=== PATIENT | male | born 1950 | race Caucasian/White ===

== ENCOUNTER → 2016-08-11 | Outpatient (REF) | payer BC, MEDICARE ==
[2016-08-11 20:02] LABS: ALBUMIN 4.6 GM/DL (3.2-5.2); ALBUMIN/GLOBULIN RATIO 1.39 (1.00-1.93); ALKALINE PHOSPHATASE 117 U/L (45-117); ALT/SGPT 25 U/L (12-78); ANION GAP 9 MEQ/L (8-16); AST/SGOT 10 U/L (15-37); BILIRUBIN,TOTAL 0.6 MG/DL (0.2-1.0); BLOOD UREA NITROGEN 11 MG/DL (7-18); CALCIUM LEVEL 9.4 MG/DL (8.8-10.2); CARBON DIOXIDE LEVEL 29 MEQ/L (21-32); CHLORIDE LEVEL 97 MEQ/L (98-107); CHOLESTEROL LEVEL 155 MG/DL (<200); CREATININE FOR GFR 0.89 MG/DL (0.70-1.30); GLOMERULAR FILTRATION RATE > 60.0 (>49); GLUCOSE, FASTING 234 MG/DL (80-110); SODIUM LEVEL 135 MEQ/L (136-145); TOTAL PROTEIN 7.9 GM/DL (6.4-8.2); TRIGLYCERIDES LEVEL 312 MG/DL (<150)
== END ==
LOC: M SFHCCLAY 09:48
PROVIDERS: ATTEND Family Medicine
DX: I10 Essential (primary) hypertension (principal); E11.9 Type 2 diabetes mellitus without complications; E78.5 Hyperlipidemia, unspecified

== ENCOUNTER 2017-02-09 12:37 | Inpatient (IN) | payer BC, MEDICARE ==
[~2017-02-09] VITALS: Ht 185.4 cm; Wt 107.2 kg
[2017-02-09] MEDS: ATORVASTATIN 20 MG TAB PO SCH (09:00)
[2017-02-09] MEDS ORDERED: HYDR25TA6 (12:57)
[2017-02-09] MEDS ORDERED: ATEN100T PO (12:57)
[2017-02-09] MEDS ORDERED: GABA-279 PO (12:57)
[2017-02-09] MEDS ORDERED: METF10004 PO (12:57)
[2017-02-09] MEDS ORDERED: GLIM2TA PO (12:57)
[2017-02-09] MEDS ORDERED: GEMF600T PO (12:57)
[2017-02-09] MEDS ORDERED: LOVA20TA2 PO (12:57)
[2017-02-09] MEDS ORDERED: LABETALOL HCL 100 MG/20 ML VIAL IV STA ×2 (13:28→14:12)
[2017-02-09 13:36] LABS: BASO # 0.1 10^3/uL (0.0-0.2); BASO % 0.6 % (0.0-1.0); EOS # 0.2 10^3/uL (0.0-0.50); EOS % 2.4 % (0.0-3.0); IMMATURE GRANULOCYTE % 0.5 % (0-0); LYMPH # 2.1 10^3/uL (1.5-4.5); LYMPH % 21.2 % (24.0-44.0); MEAN CORPUSCULAR HEMOGLOBIN 28.3 pg (27.0-33.0); MEAN CORPUSCULAR HGB CONC 34.6 g/dl (32.0-36.5); MEAN CORPUSCULAR VOLUME 81.9 fl (80.0-96.0); MONO # 0.7 10^3/uL (0.0-0.8); MONO % 7.1 % (0.0-5.0); NEUTROPHILS # 6.8 10^3/uL (1.8-7.7); NEUTROPHILS % 68.2 % (36.0-66.0); PLATELET COUNT, AUTOMATED 277 10^3/uL (150-450); RED CELL DISTRIBUTION WIDTH 13.2 % (11.5-14.5)
[2017-02-09 13:41] LABS: ADD MANUAL DIFFER NO; DIFF SLIDE NUMBER 229
[2017-02-09 13:45] LABS: INR 1.01
[2017-02-09 13:51] LABS: ANION GAP 8 MEQ/L (8-16); BLOOD UREA NITROGEN 11 MG/DL (7-18); CALCIUM LEVEL 9.1 MG/DL (8.8-10.2); CARBON DIOXIDE LEVEL 30 MEQ/L (21-32); CHLORIDE LEVEL 93 MEQ/L (98-107); CREATININE FOR GFR 0.92 MG/DL (0.70-1.30); GLOMERULAR FILTRATION RATE > 60.0 (>49); GLUCOSE, FASTING 256 MG/DL (80-110); POTASSIUM SERUM 3.6 MEQ/L (3.5-5.1); SODIUM LEVEL 131 MEQ/L (136-145)
--- NOTE | 2017-02-09 14:00 | REP ---
CT of the brain without IV contrast: There are no comparisons. There is no hemorrhage. Cortical stripe is unremarkable. There is no edema, mass effect or midline shift. The ventricles and sulci are mildly enlarged compatible with diffuse volume loss. The visualized paranasal sinuses and mastoids are clear. Impression: There is no hemorrhage, acute infarct or mass. There is mild diffuse volume loss. Signed by Wilbert Moore MD 02/09/2017 01:51 P
--- NOTE | 2017-02-09 14:03 | REP ---
Portable chest, 01:32 p.m., single AP view, patient sitting: There are no comparisons. The lung josé are clear. The cardiac size is normal. The rg, mediastinum, and bony thorax are unremarkable. Impression: Negative portable chest. Signed by Wilbert Moore MD 02/09/2017 01:54 P
[2017-02-09] MEDS ORDERED: ASPIRIN 325 MG TAB PO ONE (14:15)
[2017-02-09] MEDS ORDERED: ALEV220T26 PO (16:03)
[2017-02-09] MEDS ORDERED: HYDR25TAB PO (16:03)
[2017-02-09] MEDS ORDERED: ASPI1TAB PO (16:03)
[2017-02-09] MEDS ORDERED: OCUVTAB4 PO (16:03)
--- NOTE | 2017-02-09 16:26 | REP ---
MRI BRAIN WITHOUT CONTRAST: HISTORY: Infarction. COMPARISON: CT 02/09/2017 An area of increased signal intensity on diffusion and T2-weighted images is present in the posterior left temporal lobe. This is decreased in signal intensity on ADC images and is consistent with an acute infarction. Small punctate areas of increased signal intensity on diffusion and T2-weighted images are present in the left frontal and parietal lobes. These are isointense in signal intensity on ADC image and are consistent with subacute infarctions. Areas of increased signal intensity on T2-weighted images are present in the periventricular and subcortical white matter. This represents small vessel ischemic disease. There is no intraparenchymal hemorrhage, mass or midline shift. The ventricular system and cortical sulci are dilated consistent with mild volume loss. There is no extracerebral collection. A retention cyst is present in the right maxillary sinus. IMPRESSION: 1. Acute left temporal lobe infarction. There is no hemorrhage. 2. There are punctate subacute infarctions in the left frontal and parietal lobes. 3. Small vessel ischemic disease. 4. Mild volume loss. Signed by Santiago Calero MD 02/09/2017 04:40 P
--- NOTE | 2017-02-09 16:52 | REP ---
MRA BRAIN WITHOUT CONTRAST: HISTORY: Infarction. 3D [id number] MR angiography was performed at the level of the [place]. There is no aneurysm or arteriovenous malformation, Mild atherosclerotic disease involves the cavernous and supraclinoid internal carotid arteries. Major intracranial vessels are patent. The right vertebral artery is dominant. IMPRESSION:1. There is no aneurysm or arteriovenous malformation. 2. Atherosclerotic disease as described above. Signed by Santiago Calero MD 02/09/2017 04:58 P
[2017-02-09] MEDS ORDERED: GLUCOSE 4 GM CHEW TABLET PO PRN (17:15)
[2017-02-09] MEDS ORDERED: DEXTROSE 50% 50 ML SYRINGE IV PRN (17:15)
[2017-02-09] MEDS ORDERED: GLUCAGON FOR INJ 1 MG VIAL (J1610) SC PRN (17:15)
[2017-02-09] MEDS ORDERED: hydrALAZINE INJ 20 MG/ML VIAL IV PRN ×2 (17:45→19:00)
[2017-02-09 17:55] LABS: CHOLESTEROL LEVEL 154 MG/DL (<200); TRIGLYCERIDES LEVEL 420 MG/DL (<150)
[2017-02-09 18:22] VITALS: BP 192/92
[2017-02-09] MEDS: HumaLOG INSULIN (NovoLOG) PER UNIT SC SCH ×2 (18:35→21:00)
[2017-02-09] MEDS ORDERED: CLOPIDOGREL 75 MG TAB PO ONE (18:45)
[2017-02-09] MEDS ORDERED: GABAPENTIN 100 MG CAP PO PRN (19:00)
[2017-02-09 20:00] VITALS: BP 154/72
[2017-02-09] MEDS ORDERED: GEMFIBROZIL 600 MG TAB PO SCH (21:00)
--- NOTE | 2017-02-09 21:42 | HPEPDOC ---
General Date of Admission Feb 09, 2017 at 14:40 Chief Complaint The patient is a 66-year-old male admitted with a reason for visit of Transient Ischemic Attack. History of Present Illness Patient is a 66 year old male who is a poor historian, with a past medical history of Type 2 Diabetes Mellitus (non-insulin dependent), hypertension, and dyslipidemia presented with chief complaint of right sided upper extremity numbness and tingling that began this morning. He states that the numbness and tingling dissipated after a couple hours. He states that at around 10am this morning he had a second episode and that his coworkers at the [facility] department noticed right facial droop and slurring of speech. At the same time he felt numbness and weakness in his right hand. He states this episode lasted about 4 hours. He has been having episodes of right hand numbness/tingling for the past year. Patient denies any leg weakness, changes in vision, headaches, dizziness, lightheadedness, chest pain, shortness of breath, and abdominal pain. Home Medications Scheduled (Preservision Areds) 1 Tab Tab, 1 TAB PO QHS, (Reported) Aspirin (Aspirin 81) 81 Mg Tab, 81 MG PO DAILY, (Reported) Atenolol (Atenolol) 100 Mg Tab, 100 MG PO QHS, (Reported) Atorvastatin Calcium (Atorvastatin Calcium) 20 Mg Tab, 80 MG PO DAILY Clopidogrel Bisulfate (Clopidogrel) 75 Mg Tab, 75 MG PO DAILY Glimepiride (Amaryl) 2 Mg Tab, 2 MG PO DAILY, (Reported) Hydrochlorothiazide (Hydrochlorothiazide) 25 Mg Tab, 25 MG PO DAILY, (Reported) Metformin Hydrochloride (Metformin HCl) 1,000 Mg Tab, 1,000 MG PO BID, (Reported ) Scheduled PRN Gabapentin (Gabapentin) 100 Mg Cap, 100 MG PO for PAIN, (Reported) Allergies Coded Allergies: No Known Drug Allergy (Unverified Allergy, Unknown, NONE, 08/17/12) Past Medical History Medical History 1 [id number] diabetes 2. Hyperlipidemia 3. Low back pain 4. Hypertension Surgical History Denies any surgery history. Family History Significant Family History: No pertinent family hx Unsure because patient is adopted. offsprings are healthy otherwise. Social History * Smoker: Denies Alcohol: Denies Drugs: denies Pets in the home: Dog(s) Review of Symptoms Constitutional: Denies: Fever Eyes: Denies: Pain, Vision change ENT: Denies: Head Aches, Ear Pain, Dysphagia Skin: Denies: Rash, Lesions, Breakdown Pulmonary: Denies: Dyspnea, Cough Cardiovascular: Denies: Chest Pain, Palpitations, Orthopnea, Paroxysmal Noc. Dyspnea, Lt Headedness Gastrointestinal: Denies: Nausea, Vomiting, Abdominal Pain, Diarrhea Genitourinary: Denies: Dysuria, Frequency, Incontinence Hematologic: Denies: Bruising, Bleeding Excessively Musculoskeletal: Denies: Neck Pain, Back Pain, Joint Pain, Muscle Pain, Spasms Neurological: Reports: Numbness (numbness and tingling sensation of the right arm), Change in speech (slurred speech witnessed by his coworkers), Denies: Weakness, Confusion Psych: Reports: Mood Normal, Denies: Depression, Memory Issues Physical Examination General Exam: Positive: Alert, No Acute Distress Eye Exam: Positive: PERRLA, Conjunctiva & lids normal, EOMI, Negative: Sclera icteric ENT Exam: Positive: Atraumatic, Mucous membr. moist/pink, Pharynx Normal Neck Exam: Positive: Supple, Negative: JVD, thyromegaly Chest Exam: Positive: Clear to auscultation, Normal air movement Heart Exam: Positive: Rate Normal, Regular Rhythm, Normal S1, Normal S2, Negative: Murmurs, Rubs Telemetry: Positive: No significant arrhythmia Abdomen Exam: Positive: Normal bowel sounds, Soft, Negative: Tenderness, Hepatospenomegaly Extremity Exam: Positive: Normal pulses, Negative: Clubbing, Cyanosis, Edema Skin Exam: Positive: Nl turgor and temperature, Negative: Breakdown, Lesion Neuro Exam: Positive: Normal Gait, Normal Speech, Cranial Nerves 3-12 NL, Reflexes 2+ Psych Exam: Positive: Mental status NL, Mood NL, Oriented x 3, Other (sad affact.) Vital Signs Vital Signs Date Time Temp Pulse Resp B/P (MAP) Pulse Ox O2 Delivery O2 Flow Rate FiO2 02/09/17 15:55 175/86 (115) 02/09/17 15:44 99 98 02/09/17 12:38 98.2 16 Room Air Laboratory Data Labs 24H Laboratory Tests 2 02/09/17 13:00: Immature Granulocyte % (Auto) 0.5H, White Blood Count 10.0, Red Blood Count 5.19 , Hemoglobin 14.7, Hematocrit 42.5, Mean Corpuscular Volume 81.9, Mean Corpuscular Hemoglobin 28.3, Mean Corpuscular Hemoglobin Concent 34.6, Red Cell Distribution Width 13.2, Platelet Count 277, Neutrophils (%) (Auto) 68.2H, Lymphocytes (%) (Auto) 21.2L, Monocytes (%) (Auto) 7.1H, Eosinophils (%) (Auto) 2.4, Basophils (%) (Auto) 0.6, Neutrophils # (Auto) 6.8, Lymphocytes # (Auto) 2.1, Monocytes # (Auto) 0.7, Eosinophils # (Auto) 0.2, Basophils # (Auto) 0.1, Immature Granulocyte # (Auto) 0.1H, Nucleated Red Blood Cells % (auto) 0.0, Prothrombin Time 13.4, Prothromb Time International Ratio 1.01, Activated Partial Thromboplast Time 34.5, Anion Gap 8, Glomerular Filtration Rate > 60.0, Blood Urea Nitrogen 11, Creatinine 0.92, Sodium Level 131L, Potassium Level 3.6 , Chloride Level 93L, Carbon Dioxide Level 30, Calcium Level 9.1, Total Creatine Kinase 165, Creatine Kinase MB 3.2, Creatine Kinase MB Relative Index 1.93, Troponin I < 0.02 02/09/17 13:30: Bedside Glucose (Misc Panel) 391H CBC/BMP Laboratory Tests 02/09/17 13:00 Red Blood Count 5.19, Mean Corpuscular Volume 81.9, Mean Corpuscular Hemoglobin 28.3, Mean Corpuscular Hemoglobin Concent 34.6, Red Cell Distribution Width 13.2 , Neutrophils (%) (Auto) 68.2 H, Lymphocytes (%) (Auto) 21.2 L, Monocytes (%) ( Auto) 7.1 H, Eosinophils (%) (Auto) 2.4, Basophils (%) (Auto) 0.6, Neutrophils # (Auto) 6.8, Lymphocytes # (Auto) 2.1, Monocytes # (Auto) 0.7, Eosinophils # ( Auto) 0.2, Basophils # (Auto) 0.1, Calcium Level 9.1, Total Creatine Kinase 165 Assessment/Plan 1. Unilateral weakness of the right arm plus slurred speech-has rule out TIA versus ischemic stroke versus hemorrhagic stroke versus pinched nerve. CT of the head in the ER was negative for any intracranial lesions MR of the head showed an acute left temporal infarct and punctate subacute infarctions in the left frontal and parietal lobes. Consulted neurology and Dr. Mensah see the patient tonight. We have switched the patient from lovastatin to atorvastatin 80 mg because the patient 10 year CV risk was 51.5%. Because the patient's MRI of multiple infarcts we have ordered at [facility] which Dr. Ybarra agreed to perform tomorrow on 02/10/2017, and the patient will be nothing by mouth after midnight tonight. Per Dr. Mensah's recommendation we have also placed the patient on 81 mg of aspirin plus Plavix tomorrow. The patient has gotten aspirin 325 mg today and we gave 1 dose of Plavix tonight. We appreciate continued recommendations from Dr. Mensah. Check carotid ultrasound. 2. Hypertension -this is a permissive hypertension on the setting of the patient 's ischemic stroke the patient's high blood pressure needs to be less than 185 systolic. Per the patient stating that he took his home medication this morning of atenolol 100 and hydrochlorothiazide and when he came to the ER the patient had a blood pressure was 196-200s systolic which he was given labetalol 10 mg followed by labetalol 20 mg which did not bring the patient's blood pressure down below 190s systolic. We will continue the patient's atenolol 100 mg plus the hydrochlorothiazide 25 mg and the patient will be placed on IV hydralazine 5 mg Q8h when necessary if blood pressure is above 185 systolic. 3. Diabetes-patient is placed on insulin sliding scale 4. Low back pain-patient can continue home medication. 5. DVT prophylaxis-Brodie's and sequentials Plan / VTE VTE Prophylaxis Ordered?: Yes (TEDs and sequential) GME ATTESTATION GME ATTESTATION My preceptor for this patient encounter was physically present in the building during the encounter and was fully available. As needed, all aspects of the patient interview, examination, medical decision making process, and medical care plan development were reviewed and approved by the preceptor. Preceptor is aware and concurs with the plan as stated in the body of this note and will attest to such by his/her cosignature. ATTENDING NOTE I have seen and examined the above patient and agree with the above documentation. MICHEAL GUARDADO DO Feb 09, 2017 16:28 LEO BAPTISTE Feb 20, 2017 17:33
[2017-02-09 22:00] VITALS: BP 135/68
[2017-02-09] MEDS: ATENOLOL 50 MG TAB PO SCH (22:24)
[2017-02-10] VITALS: BP 139/81
[2017-02-10 04:41] LABS: MEAN CORPUSCULAR HEMOGLOBIN 28.4 pg (27.0-33.0); MEAN CORPUSCULAR VOLUME 81.1 fl (80.0-96.0); RED CELL DISTRIBUTION WIDTH 13.2 % (11.5-14.5)
[2017-02-10 05:20] LABS: ANION GAP 7 MEQ/L (8-16); BLOOD UREA NITROGEN 10 MG/DL (7-18); CALCIUM LEVEL 9.4 MG/DL (8.8-10.2); CARBON DIOXIDE LEVEL 30 MEQ/L (21-32); CHLORIDE LEVEL 96 MEQ/L (98-107); CREATININE FOR GFR 0.81 MG/DL (0.70-1.30); GLOMERULAR FILTRATION RATE > 60.0 (>49); GLUCOSE, FASTING 148 MG/DL (80-110); MAGNESIUM LEVEL 1.7 MG/DL (1.8-2.4); POTASSIUM SERUM 3.9 MEQ/L (3.5-5.1); SODIUM LEVEL 133 MEQ/L (136-145)
[2017-02-10] MEDS: GLIMEPIRIDE 2 MG TAB PO SCH (07:30)
[2017-02-10] MEDS: HumaLOG INSULIN (NovoLOG) PER UNIT SC SCH ×4 (07:30→20:41)
--- NOTE | 2017-02-10 07:44 | REP ---
Bilateral carotid artery duplex ultrasound: Peak flow velocity analysis: RIGHT LEFT ICA. Peak flow velocity cm/sec 83 122 ICA Peak flow velocity cm/sec 16 23 ICA/CCA Ratio 0.701 0.98 ECA Peak flow velocity cm/sec 153 79 CCA Peak flow velocity cm/sec 117 125 There is no mild atheromatous plaque extending from the CCA is into the bulbs and into the ICA is and ECA bilaterally. Internal carotid artery peak flow velocities are normal indicating less than 50% narrowing bilaterally. There is mildly elevated peak flow velocity in the right ECA compatible with a 50 - 69% narrowing. The directional flow of the vertebral arteries is not indicated. Impression: There is no stenosis in the internal carotid arteries on the right or left. There is 50 - 69% stenosis of the right ECA. Signed by Wilbert Moore MD 02/10/2017 07:34 A
[2017-02-10 08:00] VITALS: BP 140/73
--- NOTE | 2017-02-10 08:24 | CR ---
DATE OF CONSULTATION: 02/09/2017 REFERRING PHYSICIAN: Dr. Sary Dawson REASON FOR CONSULTATION: Episodes of slurred speech, right arm numbness, weakness and facial droop on right side. HISTORY OF PRESENT ILLNESS: Miguel Jackson is a 66-year-old man who was at his baseline state of health until last 2 or 3 months when he had 2 or 3 episodes of right-sided facial arm numbness, weakness and slurred speech, which lasted for 15 minutes. Today, starting at 10 a.m., he had four more such episodes. They lasted for 15-30 minutes. He had right-sided facial and arm numbness, weakness and slurred speech. He snores sometimes at night. He denies smoking, snoring arousals, apnea at night. He has history of chronic low back pain. He has been taking aspirin 81 mg daily in past. He denies any headaches or neck pain. He denies dysphagia, diplopia, urinary incontinence, falls or loss of consciousness. His episodes of neurological deficit today occurred around 10 a.m., 11 a.m., 5 p.m. and 7 p.m. He again feels back to his baseline. PAST MEDICAL HISTORY: 1. Dyslipidemia. 2. Hypertension. 3. Hypertriglyceridemia. 4. Diabetes. SOCIAL HISTORY: Denies smoking, alcohol or illicit drugs. FAMILY HISTORY: He is adopted. REVIEW OF SYSTEMS: All systems were reviewed and found to be noncontributory except as mentioned in history present illness. ALLERGIES: NONE. PHYSICAL EXAMINATION: Blood pressure 213/100, pulse 98, temperature 98.2, 100% saturation on room air, respiratory rate 16. Heart: Regular rate and rhythm. Lungs: Clear to auscultation. Abdomen: Soft, nontender, nondistended. Neurological exam: Patient is awake, alert, oriented to place, person and time. Normal speech, comprehension and repetition. Extraocular muscles are intact. No facial weakness. Tongue and uvula are midline. 5/5 strength in all four extremities. Deep tendon flexes are 2+ throughout. Normal sensation. No dysmetria or ataxia. Normal visual josé to confrontation at bedside. No gross musculoskeletal abnormalities. No rash was identified on skin. Ears, nose, throat examination shows crowded upper airway and oropharynx is To class IV. DIAGNOSTIC STUDIES: His MRI scan of brain was reviewed and showed multiple frontal, parietal, occipital and temporal ischemic strokes in left cerebral hemisphere. MRA of brain showed mild atherosclerosis in internal carotid artery. His transesophageal echocardiogram and carotid ultrasound are pending. ASSESSMENT: 1. Multiple left-sided embolic acute and subacute ischemic strokes. 2. There is concern for cardiac source and coagulopathy. 3. Rule out carotid artery stenosis. PLAN: 1. Continue telemetry monitoring. 2. Blood tests to evaluate for coagulopathy. 3. Carotid ultrasound. 4. Transesophageal echocardiogram. 5. Aspirin 881 mg and Plavix 75 mg by mouth daily. 6. Family declined intravenous heparin as he had four episodes of reversible neurological deficit today. If he has another episode, we will start intravenous heparin without bolus. We will aim to keep his capital partial thromboplastin time (PTT) within 40-60. 7. Physical and occupational therapy. 8. Follow with our office in 2-4 weeks after hospital discharge. BERNICE
--- NOTE | 2017-02-10 08:59 | IPNPDOC ---
Subjective Date Seen The patient was seen on 02/10/17. Subjective Chief Complaint/HPI The patient is a 66-year-old male admitted with a reason for visit of Transient Ischemic Attack. Events since last encounter Pt states his symptoms have resolved. He denies any weakness. He denies any slurred speech. Pt denies CP, SOB, Abd pain. Constitutional: Denies: Chills, Fever Pulmonary: Denies: Dyspnea Cardiovascular: Denies: Chest Pain Gastrointestinal: Denies: Abdominal Pain Neurological: Denies: Weakness, Change in speech Objective Physical Examination General Exam: Positive: Alert, No Acute Distress Eye Exam: Positive: PERRLA, Conjunctiva & lids normal, EOMI, Negative: Sclera icteric ENT Exam: Positive: Atraumatic, Mucous membr. moist/pink, Pharynx Normal Neck Exam: Positive: Supple, Negative: JVD, thyromegaly Chest Exam: Positive: Clear to auscultation, Normal air movement Heart Exam: Positive: Rate Normal, Regular Rhythm, Normal S1, Normal S2, Negative: Murmurs, Rubs Telemetry: Positive: No significant arrhythmia Abdomen Exam: Positive: Normal bowel sounds, Soft, Negative: Tenderness, Hepatospenomegaly Extremity Exam: Positive: Normal pulses, Negative: Clubbing, Cyanosis, Edema Skin Exam: Positive: Nl turgor and temperature, Negative: Breakdown, Lesion Neuro Exam: Positive: Normal Gait, Normal Speech, Strength at 5/5 X4 ext, Cranial Nerves 3-12 NL, Reflexes 2+ Psych Exam: Positive: Mental status NL, Mood NL, Oriented x 3 Assessment /Plan Problems (1) Transient ischemic attack Permanent Comment: STROKE on MRI. NOT a TIA Last Edited By: Dm Brown M.D. on Feb 10, 2017 13:43 Status: Acute Problem Specific Plan: Consult Specialist, Monitor Clinically, Repeat Labs Problem Text: 02/10 - Dr Mensah consulted. DANE ordered and is planned for today with Dr Ybarra. Aspirin and Plavix started. Pt was switched from outpt lovastatin to atorvastatin. JFWl: multiple strokes on MRI--not a TIA (2) HTN (hypertension) Status: Chronic Problem Specific Plan: Monitor Clinically, Repeat Labs Problem Text: 02/10 - Pt was given labetalol 10 mg followed by labetalol 20 mg in the ER. Continue the patient's atenolol 100 mg plus the hydrochlorothiazide 25 mg. The patient was placed on IV hydralazine 5 mg Q8h when necessary if blood pressure is above 185 systolic. (3) DM2 (diabetes mellitus, type 2) Status: Chronic Problem Specific Plan: Monitor Clinically, Repeat Labs Problem Text: On SSI (4) Hyperlipemia Status: Chronic Problem Specific Plan: Monitor Clinically Problem Text: 02/10 - Pt was switched from outpt lovastatin to atorvastatin. Plan/VTE VTE Prophylaxis Ordered?: Yes (TEDs and SCDs) VS, I&O, 24H, Fishbone Vital Signs/I&O Vital Signs Date Time Temp Pulse Resp B/P (MAP) Pulse Ox O2 Delivery O2 Flow Rate FiO2 02/10/17 08:00 99.1 91 16 140/73 (95) 98 Room Air I&O- Last 24 Hours up to 6 AM 02/11/17 06:00 Intake Total 0 ml Output Total 375 ml Balance -375 ml Laboratory Data 24H LABS Laboratory Tests 2 02/09/17 13:00: Immature Granulocyte % (Auto) 0.5H, White Blood Count 10.0, Red Blood Count 5.19 , Hemoglobin 14.7, Hematocrit 42.5, Mean Corpuscular Volume 81.9, Mean Corpuscular Hemoglobin 28.3, Mean Corpuscular Hemoglobin Concent 34.6, Red Cell Distribution Width 13.2, Platelet Count 277, Neutrophils (%) (Auto) 68.2H, Lymphocytes (%) (Auto) 21.2L, Monocytes (%) (Auto) 7.1H, Eosinophils (%) (Auto) 2.4, Basophils (%) (Auto) 0.6, Neutrophils # (Auto) 6.8, Lymphocytes # (Auto) 2.1, Monocytes # (Auto) 0.7, Eosinophils # (Auto) 0.2, Basophils # (Auto) 0.1, Immature Granulocyte # (Auto) 0.1H, Nucleated Red Blood Cells % (auto) 0.0, Prothrombin Time 13.4, Prothromb Time International Ratio 1.01, Activated Partial Thromboplast Time 34.5, Anion Gap 8, Glomerular Filtration Rate > 60.0, Estimated Mean Plasma Glucose 151H, Hemoglobin A1c 6.9H, Blood Urea Nitrogen 11 , Creatinine 0.92, Sodium Level 131L, Potassium Level 3.6, Chloride Level 93L, Carbon Dioxide Level 30, Calcium Level 9.1, Total Creatine Kinase 165, Creatine Kinase MB 3.2, Creatine Kinase MB Relative Index 1.93, Troponin I < 0.02, Triglycerides Level 420H, LDL Cholesterol , Total Cholesterol 154, Non-HDL Cholesterol (LDL + VLDL) 125, Total HDL Cholesterol 29L, Cholesterol/HDL Ratio 5.310H 02/09/17 13:30: Bedside Glucose (Misc Panel) 391H 02/09/17 18:32: Bedside Glucose (Misc Panel) 170H 02/09/17 19:12: Total Creatine Kinase 144, Creatine Kinase MB 2.4, Creatine Kinase MB Relative Index 1.66, Troponin I < 0.02 02/09/17 21:58: Bedside Glucose (Misc Panel) 121H 02/10/17 04:29: Anion Gap 7L, Glomerular Filtration Rate > 60.0, Blood Urea Nitrogen 10, Creatinine 0.81, Sodium Level 133L, Potassium Level 3.9, Chloride Level 96L, Carbon Dioxide Level 30, Calcium Level 9.4, Total Creatine Kinase 153, Magnesium Level 1.7L, Creatine Kinase MB 2.1, Creatine Kinase MB Relative Index 1.37, Troponin I < 0.02 CBC/BMP Laboratory Tests 02/09/17 13:00 Red Blood Count 5.19, Mean Corpuscular Volume 81.9, Mean Corpuscular Hemoglobin 28.3, Mean Corpuscular Hemoglobin Concent 34.6, Red Cell Distribution Width 13.2 , Neutrophils (%) (Auto) 68.2 H, Lymphocytes (%) (Auto) 21.2 L, Monocytes (%) ( Auto) 7.1 H, Eosinophils (%) (Auto) 2.4, Basophils (%) (Auto) 0.6, Neutrophils # (Auto) 6.8, Lymphocytes # (Auto) 2.1, Monocytes # (Auto) 0.7, Eosinophils # ( Auto) 0.2, Basophils # (Auto) 0.1, Calcium Level 9.1, Total Creatine Kinase 165 02/10/17 04:29 Red Blood Count 5.29, Mean Corpuscular Volume 81.1, Mean Corpuscular Hemoglobin 28.4, Mean Corpuscular Hemoglobin Concent 35.0, Red Cell Distribution Width 13.2 , Calcium Level 9.4, Total Creatine Kinase 153 Jp Noel RPA-C Feb 10, 2017 08:58 Dm Brown MD Feb 10, 2017 13:44
[2017-02-10] MEDS ORDERED: ASPIRIN 325 MG TAB PO SCH (09:00)
--- NOTE | 2017-02-10 09:17 | ECGEPIP ---
Stationary ECG Study [facility] - ED Test Date: 2017-02-09 Pat Name: TONY VALDIVIA Department: Room: - Gender: M It Manager: bhavin : 1950 Requested By: Enrique Pastor Order Number: [id number] Reading MD: Suzette Persaud Measurements Intervals [place] Rate: 94 P: 48 IA: 168 QRS: 52 QRSD: 97 T: 53 QT: 341 QTc: 428 Interpretive Statements SINUS RHYTHM NSTTW ABNORMALITY NO PRIOR FOR COMPARISON Electronically Signed On 02-10-2017 9:17:19 EDT by Suzette Persaud
[2017-02-10] MEDS: ATORVASTATIN 20 MG TAB PO SCH (09:24)
[2017-02-10] MEDS: hydroCHLOROthiazide 25 MG TAB PO SCH (09:24)
[2017-02-10] MEDS: ASPIRIN 81 MG ENTERIC TAB PO SCH (09:24)
[2017-02-10] MEDS: CLOPIDOGREL 75 MG TAB PO SCH (09:24)
[2017-02-10] MEDS ORDERED: MAG SULF 1GM/100ML (MAG RUN) 1 GM in APPROPRIATE DILUENT 1 EA IV ONE (09:45)
[2017-02-10 12:00] VITALS: BP 161/78
[2017-02-10] MEDS ORDERED: MIDAZOLAM INJ 2 MG/2 ML VIAL (J2250) As Ordered ONE (15:18)
[2017-02-10 17:06] VITALS: BP 136/77
--- NOTE | 2017-02-10 17:35 | T-ECHO ---
DATE OF PROCEDURE: 02/10/2017 REFERRING PHYSICIAN: Dr. Sary Dawson INDICATION: Acute stroke. POSTPROCEDURE DIAGNOSIS: Acute stroke. Mild aortic valve sclerosis. PRINCIPAL FINDINGS: Mild aortic valve sclerosis. No cardiac source of systemic embolism identified. PROCEDURE PERFORMED: Transesophageal echocardiogram with saline contrast IV times four. PROCEDURE PERFORMED BY: Corbin Ybarra MD INCOME TAX INVESTIGATOR: None. CONSCIOUS SEDATION: Midazolam 2 mg IV. COMPLICATIONS: None. DESCRIPTION OF PROCEDURE: Rhythm was sinus. The patient received viscous lidocaine to the back of the pharynx, which he gargled. Following this, he received 2 mg of midazolam IV for light conscious sedation. The patient tolerated the procedure well without any immediate complications. Rhythm was sinus. Esophageal intubation was accomplished without difficulty using a Pankaj multiplane two-dimensional phased array transesophageal echocardiogram probe. The left ventricle appeared normal in size and systolic function and without regional wall motion abnormalities. Left ventricle ejection fraction 60% by visual estimate. Transgastric views were moderately technically difficult. Aortic valve was 3-cusp and displayed mild focal thickening and focal calcific deposits. No aortic stenosis or aortic regurgitation. No vegetations were seen on any of the cardiac valves. Mitral valve was structurally and functionally normal. Very mild mitral regurgitation was present and within physiologic limits. Pulmonic valve was difficult to visualize but appeared to be grossly normal. Tricuspid leaflets were normal. No tricuspid valve regurgitation was seen. Atrial septum was intact anatomically and by color flow Doppler. Saline contrast IV times four with Valsalva maneuver release was performed, and no saline contrast shunting across the atrial septum was seen from left atrium to right atrium with Valsalva maneuver release. Right ventricle appeared normal in size and systolic function. Distal aortic arch and descending thoracic aorta appeared normal. No pericardial effusion. CONCLUSIONS: 1. Mild aortic valve sclerosis of a 3-cusp aortic valve. 2. No abnormal right-left saline contrast shunting times four with Valsalva maneuver release seen across the interatrial septum. No evidence of atrial septal defect or patent foramen ovale. 3. Normal left ventricle size and systolic function. 4. No intracardiac mass, or vegetations, or spontaneous echo contrast, or thrombi. No masses or spontaneous echo contrast was seen within the left atrium. Normal pulmonary vein pulse wave Doppler flow. Copy To: Dr. Sary Ybarra
[2017-02-10 20:00] VITALS: BP 135/74
[2017-02-10] MEDS: ATENOLOL 50 MG TAB PO SCH (20:49)
[2017-02-10 23:45] VITALS: BP 122/68
[2017-02-11] VITALS (7 sets, daily range): BP systolic 133–155; BP diastolic 69–80
[2017-02-11 05:11] LABS: MEAN CORPUSCULAR HEMOGLOBIN 27.9 pg (27.0-33.0); MEAN CORPUSCULAR HGB CONC 34.3 g/dl (32.0-36.5); MEAN CORPUSCULAR VOLUME 81.5 fl (80.0-96.0); RED CELL DISTRIBUTION WIDTH 13.2 % (11.5-14.5); WHITE BLOOD COUNT 9.2 10^3/uL (4.0-10.0)
[2017-02-11 05:39] LABS: ANION GAP 6 MEQ/L (8-16); BLOOD UREA NITROGEN 14 MG/DL (7-18); CALCIUM LEVEL 9.1 MG/DL (8.8-10.2); CARBON DIOXIDE LEVEL 30 MEQ/L (21-32); CHLORIDE LEVEL 96 MEQ/L (98-107); GLOMERULAR FILTRATION RATE > 60.0 (>49); GLUCOSE, FASTING 165 MG/DL (80-110); POTASSIUM SERUM 3.8 MEQ/L (3.5-5.1); SODIUM LEVEL 132 MEQ/L (136-145)
--- NOTE | 2017-02-11 08:08 | IPNPDOC ---
Subjective Date Seen The patient was seen on 02/11/17. Subjective Chief Complaint/HPI The patient is a 66-year-old male admitted with a reason for visit of Transient Ischemic Attack. Events since last encounter Pt denies any new issues. Denies Weakness, slurred speech, CP, SOB, Abd pain. Constitutional: Denies: Chills, Fever Pulmonary: Denies: Dyspnea Cardiovascular: Denies: Chest Pain Gastrointestinal: Denies: Abdominal Pain Objective Physical Examination General Exam: Positive: Alert, No Acute Distress Eye Exam: Positive: PERRLA, Conjunctiva & lids normal, EOMI, Negative: Sclera icteric ENT Exam: Positive: Atraumatic, Mucous membr. moist/pink, Pharynx Normal Neck Exam: Positive: Supple, Negative: JVD, thyromegaly Chest Exam: Positive: Clear to auscultation, Normal air movement Heart Exam: Positive: Rate Normal, Regular Rhythm, Normal S1, Normal S2, Negative: Murmurs, Rubs Telemetry: Positive: No significant arrhythmia Abdomen Exam: Positive: Normal bowel sounds, Soft, Negative: Tenderness, Hepatospenomegaly Extremity Exam: Positive: Normal pulses, Negative: Clubbing, Cyanosis, Edema Skin Exam: Positive: Nl turgor and temperature, Negative: Breakdown, Lesion Neuro Exam: Positive: Normal Gait, Normal Speech, Strength at 5/5 X4 ext, Cranial Nerves 3-12 NL, Reflexes 2+ Psych Exam: Positive: Mental status NL, Mood NL, Oriented x 3 Assessment /Plan Problems (1) Stroke Status: Acute Problem Specific Plan: Consult Specialist, Monitor Clinically Problem Text: 02/11 - MRI Brain: Acute left temporal lobe infarction. There is no hemorrhage. There are punctate subacute infarctions in the left frontal and parietal lobes. Small vessel ischemic disease. Mild volume loss. Carotid U/S: There is no stenosis in the internal carotid arteries on the right or left. There is 50 - 69% stenosis of the right ECA. DANE: Mild aortic valve sclerosis of a 3-cusp aortic valve. No abnormal right- left saline contrast shunting times four with Valsalva maneuver release seen across the interatrial septum. No evidence of atrial septal defect or patent foramen ovale. Normal left ventricle size and systolic function. No intracardiac mass, or vegetations, or spontaneous echo contrast, or thrombi. No masses or spontaneous echo contrast was seen within the left atrium. Normal pulmonary vein pulse wave Doppler flow. Dr Mensah following. He advises continue telemetry monitoring, coagulopathy testing, Aspirin 81 mg and Plavix 75 mg by mouth daily. He noted that the family declined intravenous heparin as he had multiple episodes of reversible neurological deficit today. Dr Mensah states that if he has another episode, we will start intravenous heparin without bolus, and will aim to keep his capital partial thromboplastin time (PTT) within 40-60. Pt getting PT. Not yet safe. (2) HTN (hypertension) Status: Chronic Problem Specific Plan: Monitor Clinically, Repeat Labs Problem Text: 02/11 - On atenolol 100 mg plus the hydrochlorothiazide 25 mg. Has PRN orders for IV hydralazine 5 mg Q8h when necessary if blood pressure is above 185 systolic. 02/10 - Pt was given labetalol 10 mg followed by labetalol 20 mg in the ER. Continue the patient's atenolol 100 mg plus the hydrochlorothiazide 25 mg. The patient was placed on IV hydralazine 5 mg Q8h when necessary if blood pressure is above 185 systolic. (3) DM2 (diabetes mellitus, type 2) Status: Chronic Problem Specific Plan: Monitor Clinically, Repeat Labs Problem Text: On SSI (4) Hyperlipemia Status: Chronic Problem Specific Plan: Monitor Clinically Problem Text: 02/10 - Pt was switched from outpt lovastatin to atorvastatin. (5) Transient ischemic attack Permanent Comment: STROKE on MRI. NOT a TIA Last Edited By: Dm Brown M.D. on Feb 10, 2017 13:43 Status: Acute Problem Specific Plan: Consult Specialist, Monitor Clinically, Repeat Labs Problem Text: 02/10 - Dr Mensah consulted. DANE ordered and is planned for today with Dr Ybarra. Aspirin and Plavix started. Pt was switched from outpt lovastatin to atorvastatin. JFWl: multiple strokes on MRI--not a TIA Plan/VTE VTE Prophylaxis Ordered?: Yes (TEDs and SCDs) VS, I&O, 24H, Fishbone Vital Signs/I&O Vital Signs Date Time Temp Pulse Resp B/P (MAP) Pulse Ox O2 Delivery O2 Flow Rate FiO2 02/11/17 04:13 99.0 84 16 133/74 (93) 96 Room Air 02/10/17 16:09 3 Laboratory Data 24H LABS Laboratory Tests 2 02/10/17 10:47: Total Creatine Kinase 145, Creatine Kinase MB 1.7, Creatine Kinase MB Relative Index 1.17, Troponin I < 0.02 02/10/17 12:04: Bedside Glucose (Misc Panel) 151H 02/10/17 17:09: Bedside Glucose (Misc Panel) 187H 02/10/17 20:40: Bedside Glucose (Misc Panel) 185H 02/11/17 04:42: Anion Gap 6L, Glomerular Filtration Rate > 60.0, Blood Urea Nitrogen 14, Creatinine 0.90, Sodium Level 132L, Potassium Level 3.8, Chloride Level 96L, Carbon Dioxide Level 30, Calcium Level 9.1, Magnesium Level 2.0 CBC/BMP Laboratory Tests 02/11/17 04:42 Red Blood Count 5.30, Mean Corpuscular Volume 81.5, Mean Corpuscular Hemoglobin 27.9, Mean Corpuscular Hemoglobin Concent 34.3, Red Cell Distribution Width 13.2 , Calcium Level 9.1 Jp Neol RPA-C Feb 11, 2017 08:08
[2017-02-11] MEDS: CLOPIDOGREL 75 MG TAB PO SCH (08:22)
[2017-02-11] MEDS: ATORVASTATIN 20 MG TAB PO SCH (08:22)
[2017-02-11] MEDS: HumaLOG INSULIN (NovoLOG) PER UNIT SC SCH ×4 (08:22→20:16)
[2017-02-11] MEDS: hydroCHLOROthiazide 25 MG TAB PO SCH (08:23)
[2017-02-11] MEDS: GLIMEPIRIDE 2 MG TAB PO SCH (08:23)
[2017-02-11] MEDS: ASPIRIN 81 MG ENTERIC TAB PO SCH (08:23)
[2017-02-11] MEDS: ATENOLOL 50 MG TAB PO SCH (20:15)
[2017-02-12] VITALS: BP 132/74
[2017-02-12 04:00] VITALS: BP 156/81
[2017-02-12 05:53] LABS: MEAN CORPUSCULAR HEMOGLOBIN 28.7 pg (27.0-33.0); MEAN CORPUSCULAR VOLUME 79.9 fl (80.0-96.0)
[2017-02-12 06:26] LABS: ANION GAP 9 MEQ/L (8-16); BLOOD UREA NITROGEN 17 MG/DL (7-18); CALCIUM LEVEL 9.2 MG/DL (8.8-10.2); CARBON DIOXIDE LEVEL 29 MEQ/L (21-32); CHLORIDE LEVEL 94 MEQ/L (98-107); CREATININE FOR GFR 0.87 MG/DL (0.70-1.30); GLOMERULAR FILTRATION RATE > 60.0 (>49); GLUCOSE, FASTING 165 MG/DL (80-110); MAGNESIUM LEVEL 1.9 MG/DL (1.8-2.4); POTASSIUM SERUM 3.4 MEQ/L (3.5-5.1); SODIUM LEVEL 132 MEQ/L (136-145)
[2017-02-12 08:00] VITALS: BP 131/78
[2017-02-12] MEDS ORDERED: ATOR1TAB21 PO (08:09)
[2017-02-12] MEDS ORDERED: CLOP75TA2 PO (08:09)
[2017-02-12] MEDS ORDERED: POTASSIUM CHLORIDE 10 MEQ SR TABLET PO ONE (09:00)
[2017-02-12] MEDS ORDERED: INFLUENZA VIRUS VACCINE HIGH DOSE 0.5 ML SYRINGE (90662) IM ONE (09:00)
[2017-02-12] MEDS: HumaLOG INSULIN (NovoLOG) PER UNIT SC SCH (09:01)
[2017-02-12] MEDS: CLOPIDOGREL 75 MG TAB PO SCH (09:02)
[2017-02-12] MEDS: ASPIRIN 81 MG ENTERIC TAB PO SCH (09:02)
[2017-02-12] MEDS: ATORVASTATIN 20 MG TAB PO SCH (09:02)
[2017-02-12] MEDS: GLIMEPIRIDE 2 MG TAB PO SCH (09:02)
[2017-02-12] MEDS: hydroCHLOROthiazide 25 MG TAB PO SCH (09:02)
--- NOTE | 2017-02-12 10:55 | DSES ---
DATE OF ADMISSION: 02/10/2017 DATE OF DISCHARGE: 02/12/2017 PRIMARY CARE PROVIDER (PCP): Luis Kenney MD ATTENDING PHYSICIAN: Dm Brown MD CONSULTANTS: Rosenda Mensah MD Miguel Jackson is a 66-year-old male with a history of diabetes mellitus type 2, hypertension, dyslipidemia, who presented to the emergency room (ER) with right upper extremity numbness and tingling and slurred speech. Imaging was conducted, and a CT of the head showed no hemorrhage, acute infarct, or mass; and an MRI of the brain was ordered and showed acute left temporal lobe infarction with no hemorrhage and punctate subacute infarctions in the left frontal and parietal lobes and small vessel ischemic disease and mild vessel loss. Patient was admitted with stroke. He was seen by neurology by Dr. Mensah. The patient was placed on aspirin and Plavix. He had a transesophageal echocardiogram (DANE) done that showed mild aortic valve sclerosis of three-cusp aortic valve. No [id number] contrast shunting. No evidence of atrioseptal defect or patent foramen ovale. No intracardiac mass or vegetations or thrombi. Patient was seen by physical therapy and has been progressing with therapy. He was taken off of his home dose of lovastatin and gemfibrozil and switched to high-dose atorvastatin 80 mg daily. He will be discharged home today with services if he passes home safety evaluation. Patient will need to followup with neurology per their instructions. Patient should followup with his PCP, Dr. Kenney, next week. PHYSICAL EXAM: Temperature 99.1, pulse 85, respiratory rate 18, blood pressure is 156/81, pulse oximetry 90% on room air. General: Patient is alert and oriented times three. No acute distress. Chest: Clear is to auscultation bilaterally. Heart: Regular rate and rhythm. Abdomen: Positive bowel sounds. Soft, nontender. Extremities: No edema. Neurologic: Speech is normal. Strength is good and equal bilaterally. MEDICATIONS: - atorvastatin 80 mg by mouth daily - Plavix 75 mg by mouth daily - aspirin 81 mg by mouth daily - atenolol 100 mg by mouth daily as needed - Amaryl 2 mg by mouth daily - hydrochlorothiazide 25 mg by mouth daily - metformin 1000 mg by mouth twice a day - PreserVision AREDS one tablet by mouth nightly DISCHARGE INSTRUCTIONS: Patient will followup with Dr. Kenney next week. Patient will followup with Dr. Mensah in a week. Diet is 2-gram sodium and carbohydrate-consistent. Activity as tolerated. Home health referral. DISCHARGE DIAGNOSES: 1. Stroke. 2. Hypertension. 3. Diabetes mellitus type 2. 4. Hyperlipidemia. Edited: preston 02/13/2017 [id number]
[2017-02-17 00:06] LABS: APTT 28.1 sec (.); DRVTT Screen Seconds 42.9 sec (.); PROTEIN S ANTIGEN FREE 103 % (57-157); PROTEIN S ANTIGEN TOTAL 88 % (60-150); SJOGREN'S ANTI SS-A <0.2 AI (0.0-0.9); SJOGREN'S ANTI SS-B <0.2 AI (0.0-0.9)
== END 2017-02-12 11:50 | disposition home or self-care (01) | DRG 45 ==
LOC: M ED 12:37 → M ED INP 14:40 → M ICU 18:13 → OBSVTOIN 02-10 10:02 → M PCU 02-11 21:32
PROVIDERS: ADMIT Hospitalist; ATTEND Family Medicine
DX: I63.49 Cerebral infarction due to embolism of other cerebral artery (principal); I10 Essential (primary) hypertension; E11.9 Type 2 diabetes mellitus without complications; E78.5 Hyperlipidemia, unspecified; Z79.899 Other long term (current) drug therapy; Z79.82 Long term (current) use of aspirin; M54.5 Low back pain; I65.23 Occlusion and stenosis of bilateral carotid arteries

== ENCOUNTER → 2017-07-20 | Outpatient (REF) | payer BC, MEDICARE ==
[2017-07-20 16:39] LABS: HEMATOCRIT 45.5 % (42.0-52.0); HEMOGLOBIN 15.2 g/dl (14.0-18.0); MEAN CORPUSCULAR HEMOGLOBIN 27.6 pg (27.0-33.0); MEAN CORPUSCULAR HGB CONC 33.4 g/dl (32.0-36.5); MEAN CORPUSCULAR VOLUME 82.6 fl (80.0-96.0); PLATELET COUNT, AUTOMATED 260 10^3/uL (150-450); RED BLOOD COUNT 5.51 10^6/uL (4.30-6.10); RED CELL DISTRIBUTION WIDTH 13.2 % (11.5-14.5); WHITE BLOOD COUNT 8.6 10^3/uL (4.0-10.0)
[2017-07-20 16:48] LABS: ANION GAP 5 MEQ/L (8-16); BLOOD UREA NITROGEN 8 MG/DL (7-18); CALCIUM LEVEL 9.1 MG/DL (8.8-10.2); CARBON DIOXIDE LEVEL 32 MEQ/L (21-32); CHLORIDE LEVEL 98 MEQ/L (98-107); CREATININE FOR GFR 0.72 MG/DL (0.70-1.30); GLOMERULAR FILTRATION RATE > 60.0 (>49); GLUCOSE, FASTING 177 MG/DL (70-100); POTASSIUM SERUM 4.2 MEQ/L (3.5-5.1); SODIUM LEVEL 135 MEQ/L (136-145)
[2017-07-20 16:55] LABS: ESTIMATED AVERAGE GLUCOSE 123 MG/DL (60-110); HEMOGLOBIN A1c 5.9 %
== END ==
LOC: M SFHCCLAY 09:30
DX: E11.9 Type 2 diabetes mellitus without complications (principal); I63.9 Cerebral infarction, unspecified
CPT/HCPCS: 83036

== ENCOUNTER → 2017-11-16 | Outpatient (REF) | payer MEDICARE ==
[2017-11-16 12:36] LABS: ALBUMIN 4.1 GM/DL (3.2-5.2); ALBUMIN/GLOBULIN RATIO 1.17 (1.00-1.93); ALKALINE PHOSPHATASE 148 U/L (45-117); ALT/SGPT 36 U/L (12-78); ANION GAP 8 MEQ/L (8-16); AST/SGOT 15 U/L (7-37); BILIRUBIN,TOTAL 0.7 MG/DL (0.2-1.0); BLOOD UREA NITROGEN 11 MG/DL (7-18); CALCIUM LEVEL 9.1 MG/DL (8.8-10.2); CARBON DIOXIDE LEVEL 32 MEQ/L (21-32); CHLORIDE LEVEL 98 MEQ/L (98-107); CHOLESTEROL LEVEL 94 MG/DL (<200); CHOLESTEROL RISK RATIO 3.481 (<5); CREATININE FOR GFR 0.75 MG/DL (0.70-1.30); GLOMERULAR FILTRATION RATE > 60.0 (>49); GLUCOSE, FASTING 86 MG/DL (70-100); HDL CHOLESTEROL 27 MG/DL (>40); LDL CHOLESTEROL 33.4 MG/DL (<100); NON-HDL-C 67 MG/DL; SODIUM LEVEL 138 MEQ/L (136-145); TOTAL PROTEIN 7.6 GM/DL (6.4-8.2); TRIGLYCERIDES LEVEL 168 MG/DL (<150)
[2017-11-16 12:43] LABS: CREATININE, URINE 39.4 MG/DL; MALB URINE SIEMENS < 5.0 MG/L; MAU/CREAT RATIO 12.6 MCG/MG (0.0-30.0)
[2017-11-16 13:49] LABS: ESTIMATED AVERAGE GLUCOSE 114 MG/DL (60-110); HEMOGLOBIN A1c 5.6 %
== END ==
LOC: M SFHCCLAY 09:49
DX: E11.9 Type 2 diabetes mellitus without complications (principal); E78.2 Mixed hyperlipidemia
CPT/HCPCS: 80053

== ENCOUNTER → 2018-03-01 | Outpatient (REF) | payer MEDICARE ==
[2018-03-01 17:10] LABS: ANION GAP 7 MEQ/L (8-16); BLOOD UREA NITROGEN 8 MG/DL (7-18); CALCIUM LEVEL 9.7 MG/DL (8.8-10.2); CARBON DIOXIDE LEVEL 32 MEQ/L (21-32); CHLORIDE LEVEL 99 MEQ/L (98-107); CREATININE FOR GFR 0.75 MG/DL (0.70-1.30); GLOMERULAR FILTRATION RATE > 60.0 (>49); GLUCOSE, FASTING 99 MG/DL (70-100); POTASSIUM SERUM 4.2 MEQ/L (3.5-5.1); SODIUM LEVEL 138 MEQ/L (136-145)
[2018-03-01 19:42] LABS: ESTIMATED AVERAGE GLUCOSE 114 MG/DL (60-110); HEMOGLOBIN A1c 5.6 %
== END ==
LOC: M SFHCCLAY 09:50
DX: E11.9 Type 2 diabetes mellitus without complications (principal); Z23 Encounter for immunization
CPT/HCPCS: 83036

== ENCOUNTER → 2018-06-28 | Outpatient (REF) | payer MEDICARE, BC ==
[~2018-06-28] MED LIST: ALEV220T26 PO; ASPI1TAB PO; ATEN100T PO; ATOR1TAB21 PO; CLOP75TA2 PO; GABA-1171 PO; GEMF600T5 PO; GLIM2TA PO; HYDR25TA6; HYDR25TAB PO; LOVA20TA2 PO; METF10004 PO; OCUVTAB4 PO
[2018-06-28 12:01] LABS: BLOOD UREA NITROGEN 9 MG/DL (7-18); CALCIUM LEVEL 9.2 MG/DL (8.8-10.2); CARBON DIOXIDE LEVEL 31 MEQ/L (21-32); CHLORIDE LEVEL 99 MEQ/L (98-107); CREATININE FOR GFR 0.71 MG/DL (0.70-1.30); GLOMERULAR FILTRATION RATE > 60.0 (>49); GLUCOSE, FASTING 120 MG/DL (70-100); POTASSIUM SERUM 4.2 MEQ/L (3.5-5.1); SODIUM LEVEL 137 MEQ/L (136-145)
[2018-06-28 12:11] LABS: HEMOGLOBIN A1c 6.1 %
== END ==
LOC: M SFHCCLAY 08:49
PROVIDERS: ATTEND Family Medicine
DX: E11.9 Type 2 diabetes mellitus without complications (principal)
CPT/HCPCS: 80048; 83036; G0463

== ENCOUNTER → 2018-11-03 | Outpatient (REF) | payer MEDICARE ==
[~2018-11-03] MED LIST changes: -ASPI1TAB PO; +ASPI81TA26 PO; -GLIM2TA PO; +GLIM2TAB29 PO
[2018-11-03 12:02] LABS: ALBUMIN 4.1 GM/DL (3.2-5.2); ALT/SGPT 37 U/L (12-78); BILIRUBIN,TOTAL 0.7 MG/DL (0.2-1.0); BLOOD UREA NITROGEN 11 MG/DL (7-18); CALCIUM LEVEL 9.4 MG/DL (8.8-10.2); CARBON DIOXIDE LEVEL 30 MEQ/L (21-32); CHLORIDE LEVEL 100 MEQ/L (98-107); CHOLESTEROL LEVEL 105 MG/DL (<200); CREATININE FOR GFR 0.79 MG/DL (0.70-1.30); GLOMERULAR FILTRATION RATE > 60.0 (>49); GLUCOSE, FASTING 124 MG/DL (70-100); HDL CHOLESTEROL 28 MG/DL (>40); LDL CHOLESTEROL 28 MG/DL (<100); NON-HDL-C 77 MG/DL; SODIUM LEVEL 137 MEQ/L (136-145); TRIGLYCERIDES LEVEL 244 MG/DL (<150)
[2018-11-03 12:48] LABS: HEMOGLOBIN A1c 6.1 %
[2018-11-04 12:16] LABS: CREATININE, URINE 33.8 MG/DL; MALB URINE SIEMENS 7.2 MG/L; MAU/CREAT RATIO 21.3 MCG/MG (0.0-30.0)
== END ==
LOC: M SFHCCLAY 08:44
PROVIDERS: ATTEND Family Medicine
DX: I10 Essential (primary) hypertension (principal); E11.9 Type 2 diabetes mellitus without complications; E78.2 Mixed hyperlipidemia
CPT/HCPCS: 36415; 80053; 80061; 82043; 83036; G0463

== ENCOUNTER → 2019-03-07 | Outpatient (REF) | payer MEDICARE ==
[2019-03-07 11:42] LABS: ALBUMIN 4.2 GM/DL (3.2-5.2); ALT/SGPT 38 U/L (12-78); BILIRUBIN,TOTAL 0.7 MG/DL (0.2-1.0); BLOOD UREA NITROGEN 8 MG/DL (7-18); CALCIUM LEVEL 9.5 MG/DL (8.8-10.2); CARBON DIOXIDE LEVEL 31 MEQ/L (21-32); CHLORIDE LEVEL 99 MEQ/L (98-107); CREATININE FOR GFR 0.86 MG/DL (0.70-1.30); GLOMERULAR FILTRATION RATE > 60.0 (>49); GLUCOSE, FASTING 121 MG/DL (70-100); POTASSIUM SERUM 4.2 MEQ/L (3.5-5.1); SODIUM LEVEL 136 MEQ/L (136-145)
[2019-03-07 12:37] LABS: HEMOGLOBIN A1c 5.9 %
== END ==
LOC: M SFHCCLAY 08:46
PROVIDERS: ATTEND Family Medicine
DX: E11.9 Type 2 diabetes mellitus without complications (principal); Z23 Encounter for immunization
CPT/HCPCS: 80053; 83036; 90682; G0008; G0463

== ENCOUNTER → 2019-07-15 | Outpatient (REF) | payer MEDICARE ==
[2019-07-15 11:23] LABS: BLOOD UREA NITROGEN 11 MG/DL (7-18); CALCIUM LEVEL 8.9 MG/DL (8.8-10.2); CARBON DIOXIDE LEVEL 31 MEQ/L (21-32); CHLORIDE LEVEL 101 MEQ/L (98-107); CREATININE FOR GFR 0.75 MG/DL (0.70-1.30); GLOMERULAR FILTRATION RATE > 60.0 (>42); GLUCOSE, FASTING 121 MG/DL (70-100); POTASSIUM SERUM 4.1 MEQ/L (3.5-5.1); SODIUM LEVEL 137 MEQ/L (136-145)
[2019-07-15 11:45] LABS: HEMOGLOBIN A1c 5.8 %
== END ==
LOC: M SFHCCLAY 08:47
PROVIDERS: ATTEND Family Medicine
DX: E11.9 Type 2 diabetes mellitus without complications (principal)
CPT/HCPCS: 36415; 80048; 83036; G0463

== ENCOUNTER → 2019-11-23 | Outpatient (REF) | payer MEDICARE, BC ==
[2019-11-23 12:53] LABS: BASO # 0.1 10^3/uL (0.0-0.2); BASO % 0.7 % (0.0-1.0); EOS # 0.4 10^3/uL (0.0-0.5); EOS % 4.8 % (0.0-3.0); HEMATOCRIT 46.7 % (42.0-52.0); HEMOGLOBIN 15.6 g/dl (13.5-17.5); LYMPH # 1.9 10^3/uL (1.5-5.0); LYMPH % 21.6 % (24.0-44.0); MEAN CORPUSCULAR HEMOGLOBIN 28.6 pg (27.0-33.0); MEAN CORPUSCULAR HGB CONC 33.4 g/dl (32.0-36.5); MEAN CORPUSCULAR VOLUME 85.5 fl (80.0-96.0); MONO # 0.6 10^3/uL (0.0-0.8); MONO % 6.8 % (0.0-5.0); NEUTROPHILS # 5.7 10^3/uL (1.5-8.5); NEUTROPHILS % 65.6 % (36.0-66.0); PLATELET COUNT, AUTOMATED 240 10^3/uL (150-450); RED BLOOD COUNT 5.46 10^6/uL (4.30-6.10); WHITE BLOOD COUNT 8.7 10^3/uL (4.0-10.0)
[2019-11-23 13:09] LABS: ALT/SGPT 32 U/L (12-78); BILIRUBIN,TOTAL 0.7 MG/DL (0.2-1.0); BLOOD UREA NITROGEN 9 MG/DL (7-18); CARBON DIOXIDE LEVEL 30 MEQ/L (21-32); CHLORIDE LEVEL 100 MEQ/L (98-107); CHOLESTEROL LEVEL 102 MG/DL (<200); CHOLESTEROL RISK RATIO 3.923 (<5); CREATININE FOR GFR 0.78 MG/DL (0.70-1.30); FREE T4 1.26 NG/DL (0.76-1.46); GLOMERULAR FILTRATION RATE > 60.0 (>42); GLUCOSE, FASTING 105 MG/DL (70-100); HDL CHOLESTEROL 26 MG/DL (>40); LDL CHOLESTEROL 49 MG/DL (<100); NON-HDL-C 76 MG/DL; POTASSIUM SERUM 3.9 MEQ/L (3.5-5.1); SODIUM LEVEL 137 MEQ/L (136-145); THYROID STIMULATING HORMONE 0.708 uIU/ML (0.358-3.740); TOTAL PROTEIN 7.7 GM/DL (6.4-8.2); TRIGLYCERIDES LEVEL 133 MG/DL (<150)
[2019-11-23 15:21] LABS: HEMOGLOBIN A1c 5.4 %
[2019-11-23 19:12] LABS: CREATININE, URINE 65.2 MG/DL; MALB URINE SIEMENS 7.1 MG/L; MAU/CREAT RATIO 10.8 MCG/MG (0.0-30.0)
== END ==
LOC: M SFHCCLAY 08:48
PROVIDERS: ATTEND Nurse Practitioner Family
DX: E11.9 Type 2 diabetes mellitus without complications (principal); I10 Essential (primary) hypertension; I63.9 Cerebral infarction, unspecified
CPT/HCPCS: 80053; 80061; 82043; 83036; 84439; 84443; 85025; G0463

== ENCOUNTER → 2020-03-26 | Outpatient (REF) | payer MEDICARE, BC ==
[2020-03-26 11:43] LABS: BASO # 0.1 10^3/uL (0.0-0.2); BASO % 0.6 % (0.0-1.0); EOS # 0.3 10^3/uL (0.0-0.5); EOS % 3.3 % (0.0-3.0); HEMOGLOBIN 15.2 g/dl (13.5-17.5); LYMPH # 1.8 10^3/uL (1.5-5.0); LYMPH % 22.3 % (24.0-44.0); MEAN CORPUSCULAR HGB CONC 32.3 g/dl (32.0-36.5); MEAN CORPUSCULAR VOLUME 86.7 fl (80.0-96.0); MONO # 0.7 10^3/uL (0.0-0.8); MONO % 8.7 % (0.0-5.0); NEUTROPHILS # 5.1 10^3/uL (1.5-8.5); NEUTROPHILS % 64.7 % (36.0-66.0); PLATELET COUNT, AUTOMATED 269 10^3/uL (150-450); RED BLOOD COUNT 5.42 10^6/uL (4.30-6.10); WHITE BLOOD COUNT 7.8 10^3/uL (4.0-10.0)
[2020-03-26 12:02] LABS: ALBUMIN 4.2 GM/DL (3.2-5.2); ALT/SGPT 32 U/L (12-78); BILIRUBIN,TOTAL 0.8 MG/DL (0.2-1.0); BLOOD UREA NITROGEN 8 MG/DL (7-18); CALCIUM LEVEL 9.6 MG/DL (8.8-10.2); CARBON DIOXIDE LEVEL 30 MEQ/L (21-32); CHLORIDE LEVEL 100 MEQ/L (98-107); CREATININE FOR GFR 0.86 MG/DL (0.70-1.30); GLOMERULAR FILTRATION RATE > 60.0 (>42); GLUCOSE, FASTING 119 MG/DL (70-100); POTASSIUM SERUM 4.4 MEQ/L (3.5-5.1); SODIUM LEVEL 135 MEQ/L (136-145); TOTAL PROTEIN 7.5 GM/DL (6.4-8.2)
[2020-03-26 12:34] LABS: HEMOGLOBIN A1c 5.4 %
[2020-03-27 21:08] LABS: PSA TOTAL 0.2 ng/mL (0.0-4.0)
== END ==
LOC: M SFHCCLAY 07:36
PROVIDERS: ATTEND Nurse Practitioner Family
DX: I63.9 Cerebral infarction, unspecified (principal); E11.9 Type 2 diabetes mellitus without complications; N52.9 Male erectile dysfunction, unspecified

== ENCOUNTER → 2020-09-20 | Outpatient (REF) | payer MEDICARE, BC ==
[~2020-09-20] MED LIST changes: +HYDR-3490 PO; -HYDR25TAB PO
[2020-09-20 11:52] LABS: BASO # 0.1 10^3/uL (0.0-0.2); BASO % 0.6 % (0.0-1.0); EOS # 0.3 10^3/uL (0.0-0.5); EOS % 4.2 % (0.0-3.0); HEMATOCRIT 47.3 % (42.0-52.0); HEMOGLOBIN 15.5 g/dl (13.5-17.5); LYMPH # 2.1 10^3/uL (1.5-5.0); LYMPH % 26.1 % (24.0-44.0); MEAN CORPUSCULAR HEMOGLOBIN 28.9 pg (27.0-33.0); MEAN CORPUSCULAR HGB CONC 32.8 g/dl (32.0-36.5); MEAN CORPUSCULAR VOLUME 88.1 fl (80.0-96.0); MONO # 0.8 10^3/uL (0.0-0.8); MONO % 9.3 % (2.0-8.0); NEUTROPHILS # 4.8 10^3/uL (1.5-8.5); NEUTROPHILS % 59.3 % (36.0-66.0); PLATELET COUNT, AUTOMATED 258 10^3/uL (150-450); RED BLOOD COUNT 5.37 10^6/uL (4.30-6.10)
[2020-09-20 12:12] LABS: HEMOGLOBIN A1c 5.2 %
[2020-09-20 12:35] LABS: ALBUMIN 4.1 GM/DL (3.2-5.2); ALT/SGPT 33 U/L (12-78); BILIRUBIN,TOTAL 0.8 MG/DL (0.2-1.0); BLOOD UREA NITROGEN 7 MG/DL (7-18); CALCIUM LEVEL 9.7 MG/DL (8.8-10.2); CARBON DIOXIDE LEVEL 30 MEQ/L (21-32); CHLORIDE LEVEL 101 MEQ/L (98-107); CHOLESTEROL LEVEL 111 MG/DL (<200); CREATININE, URINE 62.6 MG/DL; FREE T4 1.12 NG/DL (0.76-1.46); GLOMERULAR FILTRATION RATE > 60.0 (>42); GLUCOSE, FASTING 102 MG/DL (70-100); HDL CHOLESTEROL 31 MG/DL (>40); LDL CHOLESTEROL 48 MG/DL (<100); MALB URINE SIEMENS 5.2 MG/L; MAU/CREAT RATIO 8.3 MCG/MG (0.0-30.0); NON-HDL-C 80 MG/DL; POTASSIUM SERUM 4.3 MEQ/L (3.5-5.1); SODIUM LEVEL 136 MEQ/L (136-145); THYROID STIMULATING HORMONE 0.922 uIU/ML (0.358-3.740); TOTAL PROTEIN 7.5 GM/DL (6.4-8.2); TRIGLYCERIDES LEVEL 160 MG/DL (<150)
== END ==
LOC: M SFHCCLAY 07:20
PROVIDERS: ATTEND Nurse Practitioner Family
DX: E11.9 Type 2 diabetes mellitus without complications (principal); I63.9 Cerebral infarction, unspecified; I10 Essential (primary) hypertension

== ENCOUNTER → 2020-10-29 | Outpatient (CLI) | payer MEDICARE, BC | LOC: M CARPUL 09:22 | PROVIDERS: ATTEND Nurse Practitioner Family | DX: I35.8 Other nonrheumatic aortic valve disorders (principal) ==

== ENCOUNTER → 2021-03-21 | Outpatient (REF) | payer MEDICARE, BC ==
[2021-03-21 12:06] LABS: ALBUMIN 4.2 GM/DL (3.2-5.2); ALT/SGPT 34 U/L (12-78); BLOOD UREA NITROGEN 9 MG/DL (7-18); CALCIUM LEVEL 9.7 MG/DL (8.8-10.2); CARBON DIOXIDE LEVEL 29 MEQ/L (21-32); CHLORIDE LEVEL 99 MEQ/L (98-107); CREATININE FOR GFR 0.82 MG/DL (0.70-1.30); GLOMERULAR FILTRATION RATE > 60.0 (>42); GLUCOSE, FASTING 145 MG/DL (70-100); POTASSIUM SERUM 4.2 MEQ/L (3.5-5.1); SODIUM LEVEL 136 MEQ/L (136-145); TOTAL PROTEIN 7.9 GM/DL (6.4-8.2)
== END ==
LOC: M SFHCCLAY 07:08
PROVIDERS: ATTEND Nurse Practitioner Family
DX: E11.9 Type 2 diabetes mellitus without complications (principal)

== ENCOUNTER → 2021-09-19 | Outpatient (REF) | payer MEDICARE, BC ==
[2021-09-19 11:47] LABS: BASO % 0.4 % (0.0-1.0); EOS # 0.2 10^3/uL (0.0-0.5); EOS % 2.6 % (0.0-3.0); HEMOGLOBIN 14.9 g/dl (13.5-17.5); LYMPH # 1.1 10^3/uL (1.5-5.0); LYMPH % 15.5 % (24.0-44.0); MEAN CORPUSCULAR HEMOGLOBIN 29.1 pg (27.0-33.0); MEAN CORPUSCULAR HGB CONC 34.7 g/dl (32.0-36.5); MONO % 14.4 % (2.0-8.0); NEUTROPHILS # 4.6 10^3/uL (1.5-8.5); NEUTROPHILS % 66.8 % (36.0-66.0); PLATELET COUNT, AUTOMATED 188 10^3/uL (150-450); RED BLOOD COUNT 5.12 10^6/uL (4.30-6.10); WHITE BLOOD COUNT 6.9 10^3/uL (4.0-10.0)
[2021-09-19 12:11] LABS: ALBUMIN 3.9 GM/DL (3.2-5.2); ALT/SGPT 28 U/L (12-78); BLOOD UREA NITROGEN 7 MG/DL (7-18); CALCIUM LEVEL 9.5 MG/DL (8.8-10.2); CARBON DIOXIDE LEVEL 29 MEQ/L (21-32); CHLORIDE LEVEL 96 MEQ/L (98-107); CHOLESTEROL LEVEL 103 MG/DL (<200); CHOLESTEROL RISK RATIO 3.551 (<5); CREATININE FOR GFR 0.79 MG/DL (0.70-1.30); GLOMERULAR FILTRATION RATE > 60.0 (>42); GLUCOSE, FASTING 153 MG/DL (70-100); HDL CHOLESTEROL 29 MG/DL (>40); LDL CHOLESTEROL 45 MG/DL (<100); NON-HDL-C 74 MG/DL; POTASSIUM SERUM 3.9 MEQ/L (3.5-5.1); SODIUM LEVEL 133 MEQ/L (136-145); TOTAL PROTEIN 7.6 GM/DL (6.4-8.2); TRIGLYCERIDES LEVEL 143 MG/DL (<150)
[2021-09-19 21:55] LABS: HEMOGLOBIN A1c 6.3 %
== END ==
LOC: M SFHCCLAY 07:09
PROVIDERS: ATTEND Nurse Practitioner Family
DX: E11.9 Type 2 diabetes mellitus without complications (principal); I10 Essential (primary) hypertension; I63.9 Cerebral infarction, unspecified

== ENCOUNTER → 2022-03-20 | Outpatient (REF) | payer MEDICARE, BC ==
[2022-03-20 11:53] LABS: BASO # 0.1 10^3/uL (0.0-0.2); BASO % 0.7 % (0.0-1.0); EOS # 0.3 10^3/uL (0.0-0.5); HEMATOCRIT 45.2 % (42.0-52.0); HEMOGLOBIN 15.1 g/dl (13.5-17.5); LYMPH # 2.4 10^3/uL (1.5-5.0); LYMPH % 28.3 % (24.0-44.0); MEAN CORPUSCULAR HEMOGLOBIN 28.9 pg (27.0-33.0); MEAN CORPUSCULAR HGB CONC 33.4 g/dl (32.0-36.5); MEAN CORPUSCULAR VOLUME 86.6 fl (80.0-96.0); MONO # 0.7 10^3/uL (0.0-0.8); NEUTROPHILS % 59.6 % (36.0-66.0); PLATELET COUNT, AUTOMATED 270 10^3/uL (150-450); RED BLOOD COUNT 5.22 10^6/uL (4.30-6.10); WHITE BLOOD COUNT 8.3 10^3/uL (4.0-10.0)
[2022-03-20 12:41] LABS: ALT/SGPT 29 U/L (12-78); BLOOD UREA NITROGEN 9 MG/DL (7-18); CALCIUM LEVEL 9.4 MG/DL (8.8-10.2); CARBON DIOXIDE LEVEL 29 MEQ/L (21-32); CHLORIDE LEVEL 97 MEQ/L (98-107); CHOLESTEROL LEVEL 111 MG/DL (<200); CHOLESTEROL RISK RATIO 3.964 (<5); CREATININE FOR GFR 0.76 MG/DL (0.70-1.30); GLOMERULAR FILTRATION RATE > 60.0 (>42); GLUCOSE, FASTING 154 MG/DL (70-100); HDL CHOLESTEROL 28 MG/DL (>40); LDL CHOLESTEROL 32 MG/DL (<100); NON-HDL-C 83 MG/DL; POTASSIUM SERUM 4.3 MEQ/L (3.5-5.1); SODIUM LEVEL 135 MEQ/L (136-145); TOTAL PROTEIN 7.6 GM/DL (6.4-8.2); TRIGLYCERIDES LEVEL 257 MG/DL (<150)
[2022-03-20 13:24] LABS: HEMOGLOBIN A1c 6.1 %
== END ==
LOC: M SFHCCLAY 07:03
PROVIDERS: ATTEND Nurse Practitioner Family
DX: E78.2 Mixed hyperlipidemia (principal); I10 Essential (primary) hypertension; E11.9 Type 2 diabetes mellitus without complications; I63.9 Cerebral infarction, unspecified; I35.8 Other nonrheumatic aortic valve disorders

== ENCOUNTER → 2022-09-17 | Outpatient (REF) | payer MEDICARE, BC ==
[2022-09-17 12:03] LABS: ALBUMIN 4.3 G/DL (3.2-5.2); ALKALINE PHOSPHATASE 151 U/L (46-116); ALT/SGPT 31 U/L (7.0-40); AST/SGOT 17 U/L (<34); BILIRUBIN,TOTAL 0.9 MG/DL (0.3-1.2); BLOOD UREA NITROGEN 7 MG/DL (9-23); CALCIUM LEVEL 9.5 MG/DL (8.3-10.6); CARBON DIOXIDE LEVEL 31 MMOL/L (20-31); CHLORIDE LEVEL 98 MMOL/L (98-107); CHOLESTEROL LEVEL 118 MG/DL (<200); CREATININE FOR GFR 0.68 MG/DL (0.70-1.30); GLOMERULAR FILTRATION RATE > 60.0 (>42); GLUCOSE, FASTING 165 MG/DL (74-106); HDL CHOLESTEROL 27.4 MG/DL (>40); NON-HDL-C 90.6 MG/DL; POTASSIUM SERUM 4.5 MMOL/L (3.5-5.1); SODIUM LEVEL 131 MMOL/L (136-145); TOTAL PROTEIN 7.4 G/DL (5.7-8.2); TRIGLYCERIDES LEVEL 268 MG/DL (<150)
[2022-09-17 12:05] LABS: FREE T4 1.34 NG/DL (0.89-1.76); THYROID STIMULATING HORMONE 0.788 uIU/ML (0.55-4.78)
[2022-09-17 12:17] LABS: BASO # 0.1 10^3/uL (0.0-0.2); BASO % 0.6 % (0.0-1.0); EOS # 0.4 10^3/uL (0.0-0.5); EOS % 4.2 % (0.0-3.0); HEMATOCRIT 43.9 % (42.0-52.0); HEMOGLOBIN 15.2 g/dl (13.5-17.5); LYMPH % 23.6 % (24.0-44.0); MEAN CORPUSCULAR HGB CONC 34.6 g/dl (32.0-36.5); MEAN CORPUSCULAR VOLUME 86.8 fl (80.0-96.0); MONO # 0.7 10^3/uL (0.0-0.8); MONO % 8.3 % (2.0-8.0); NEUTROPHILS # 5.4 10^3/uL (1.5-8.5); NEUTROPHILS % 62.7 % (36.0-66.0); PLATELET COUNT, AUTOMATED 268 10^3/uL (150-450); RED BLOOD COUNT 5.06 10^6/uL (4.30-6.10); WHITE BLOOD COUNT 8.6 10^3/uL (4.0-10.0)
== END ==
LOC: M SFHCCLAY 07:17
PROVIDERS: ATTEND Nurse Practitioner Family
DX: I63.9 Cerebral infarction, unspecified (principal); E11.9 Type 2 diabetes mellitus without complications; I10 Essential (primary) hypertension; E78.2 Mixed hyperlipidemia; I35.8 Other nonrheumatic aortic valve disorders

== ENCOUNTER → 2022-12-08 | Outpatient (REF) | payer MEDICARE, BC ==
[2022-12-08 12:47] LABS: HEMOGLOBIN A1c 6.5 % (4.0-6.0)
[2022-12-08 12:58] LABS: ALBUMIN 4.2 G/DL (3.2-5.2); ALKALINE PHOSPHATASE 144 U/L (46-116); ALT/SGPT 23 U/L (7.0-40); AST/SGOT < 8 U/L (<34); BILIRUBIN,TOTAL 0.9 MG/DL (0.3-1.2); BLOOD UREA NITROGEN 11 MG/DL (9-23); CALCIUM LEVEL 9.4 MG/DL (8.3-10.6); CARBON DIOXIDE LEVEL 30 MMOL/L (20-31); CHLORIDE LEVEL 102 MMOL/L (98-107); CREATININE FOR GFR 0.73 MG/DL (0.70-1.30); GLOMERULAR FILTRATION RATE > 60.0 (>42); GLUCOSE, FASTING 127 MG/DL (74-106); POTASSIUM SERUM 4.3 MMOL/L (3.5-5.1); SODIUM LEVEL 138 MMOL/L (136-145); TOTAL PROTEIN 7.3 G/DL (5.7-8.2)
== END ==
LOC: M SFHCCLAY 07:05
PROVIDERS: ATTEND Nurse Practitioner Family
DX: E11.9 Type 2 diabetes mellitus without complications (principal); I63.9 Cerebral infarction, unspecified; I10 Essential (primary) hypertension; E78.2 Mixed hyperlipidemia; I35.8 Other nonrheumatic aortic valve disorders

== ENCOUNTER → 2023-03-18 | Outpatient (REF) | payer MEDICARE, BC ==
[2023-03-18 13:19] LABS: HEMOGLOBIN A1c 6.4 % (4.0-6.0)
[2023-03-18 13:36] LABS: ALBUMIN 4.2 G/DL (3.2-5.2); ALKALINE PHOSPHATASE 158 U/L (46-116); ALT/SGPT 27 U/L (7.0-40); AST/SGOT 13 U/L (<34); BILIRUBIN,TOTAL 1.1 MG/DL (0.3-1.2); BLOOD UREA NITROGEN 11 MG/DL (9-23); CALCIUM LEVEL 9.3 MG/DL (8.3-10.6); CARBON DIOXIDE LEVEL 31 MMOL/L (20-31); CHLORIDE LEVEL 103 MMOL/L (98-107); CREATININE FOR GFR 0.76 MG/DL (0.70-1.30); GLOMERULAR FILTRATION RATE > 60.0 (>42); GLUCOSE, FASTING 140 MG/DL (74-106); POTASSIUM SERUM 4.6 MMOL/L (3.5-5.1); SODIUM LEVEL 140 MMOL/L (136-145); TOTAL PROTEIN 5.7 G/DL (5.7-8.2)
== END ==
LOC: M SFHCCLAY 07:04
PROVIDERS: ATTEND Nurse Practitioner Family
DX: E11.9 Type 2 diabetes mellitus without complications (principal)

== ENCOUNTER → 2023-09-21 | Outpatient (REF) | payer MEDICARE, BC ==
[2023-09-21 13:01] LABS: BASO # 0.1 10^3/uL (0.0-0.2); BASO % 0.7 % (0.0-1.0); EOS # 0.3 10^3/uL (0.0-0.5); EOS % 3.7 % (0.0-3.0); HEMATOCRIT 50.1 % (42.0-52.0); HEMOGLOBIN 16.7 g/dl (13.5-17.5); LYMPH # 2.1 10^3/uL (1.5-5.0); LYMPH % 24.6 % (24.0-44.0); MEAN CORPUSCULAR HGB CONC 33.3 g/dl (32.0-36.5); MEAN CORPUSCULAR VOLUME 87.1 fl (80.0-96.0); MONO # 0.8 10^3/uL (0.0-0.8); MONO % 8.9 % (2.0-8.0); NEUTROPHILS # 5.4 10^3/uL (1.5-8.5); NEUTROPHILS % 61.8 % (36.0-66.0); PLATELET COUNT, AUTOMATED 245 10^3/uL (150-450); RED BLOOD COUNT 5.75 10^6/uL (4.30-6.10); WHITE BLOOD COUNT 8.7 10^3/uL (4.0-10.0)
[2023-09-21 13:19] LABS: HEMOGLOBIN A1c 6.3 % (4.0-6.0)
[2023-09-21 13:35] LABS: CREATININE, URINE 47.3 MG/DL; MALB URINE SIEMENS < 3.0 MG/L; MAU/CREAT RATIO 6.3 MCG/MG (0.0-30.0)
[2023-09-21 13:37] LABS: ALKALINE PHOSPHATASE 144 U/L (46-116); ALT/SGPT 23 U/L (7.0-40); AST/SGOT 12 U/L (<34); BILIRUBIN,TOTAL 0.8 MG/DL (0.3-1.2); BLOOD UREA NITROGEN 14 MG/DL (9-23); CALCIUM LEVEL 9.8 MG/DL (8.3-10.6); CARBON DIOXIDE LEVEL 30 MMOL/L (20-31); CHLORIDE LEVEL 102 MMOL/L (98-107); CHOLESTEROL LEVEL 107 MG/DL (<200); CHOLESTEROL RISK RATIO 4.06 (<5); CREATININE FOR GFR 0.75 MG/DL (0.70-1.30); GLOMERULAR FILTRATION RATE > 60.0 (>42); GLUCOSE, FASTING 135 MG/DL (74-106); HDL CHOLESTEROL 26.3 MG/DL (>40); LDL CHOLESTEROL 44.1 MG/DL (<100); NON-HDL-C 80.7 MG/DL; POTASSIUM SERUM 4.8 MMOL/L (3.5-5.1); SODIUM LEVEL 137 MMOL/L (136-145); TOTAL PROTEIN 7.1 G/DL (5.7-8.2); TRIGLYCERIDES LEVEL 183 MG/DL (<150)
[2023-09-21 13:41] LABS: FREE T4 1.33 NG/DL (0.89-1.76)
== END ==
LOC: M SFHCCLAY 06:55
PROVIDERS: ATTEND Nurse Practitioner Family
DX: E11.9 Type 2 diabetes mellitus without complications (principal); I63.9 Cerebral infarction, unspecified; I10 Essential (primary) hypertension; E78.2 Mixed hyperlipidemia; I35.8 Other nonrheumatic aortic valve disorders

== ENCOUNTER → 2023-10-07 | Outpatient (CLI) | payer MEDICARE, BC | LOC: M PLAIMG 14:39 | PROVIDERS: ATTEND Nurse Practitioner Family | DX: I35.8 Other nonrheumatic aortic valve disorders (principal) ==

== ENCOUNTER → 2024-03-22 | Outpatient (REF) | payer MEDICARE ==
[2024-03-22 11:36] LABS: ALBUMIN 3.9 G/DL (3.2-5.2); ALKALINE PHOSPHATASE 150 U/L (40-129); ALT/SGPT 19 U/L (7.0-40); AST/SGOT < 8 U/L (<34); BLOOD UREA NITROGEN 13 MG/DL (9-23); CALCIUM LEVEL 9.8 MG/DL (8.3-10.6); CARBON DIOXIDE LEVEL 30 MMOL/L (20-31); CHLORIDE LEVEL 104 MMOL/L (98-107); CREATININE FOR GFR 0.68 MG/DL (0.70-1.30); GLOMERULAR FILTRATION RATE > 60.0 (>42); GLUCOSE, FASTING 126 MG/DL (74-106); POTASSIUM SERUM 4.4 MMOL/L (3.5-5.1); SODIUM LEVEL 139 MMOL/L (136-145); TOTAL PROTEIN 7.7 G/DL (5.7-8.2)
[2024-03-22 11:46] LABS: HEMOGLOBIN A1c 5.9 % (4.0-6.0)
== END ==
LOC: M SFHCCLAY 07:06
PROVIDERS: ATTEND Nurse Practitioner Family
DX: E11.9 Type 2 diabetes mellitus without complications (principal)

== ENCOUNTER → 2024-09-19 | Outpatient (REF) | payer MEDICARE, BC ==
[2024-09-19 12:30] LABS: BASO # 0.1 10^3/uL (0.0-0.2); EOS # 0.3 10^3/uL (0.0-0.5); EOS % 4.7 % (0.0-3.0); HEMATOCRIT 49.3 % (42.0-52.0); HEMOGLOBIN 16.1 g/dl (13.5-17.5); LYMPH # 1.9 10^3/uL (1.5-5.0); LYMPH % 27.4 % (24.0-44.0); MEAN CORPUSCULAR HEMOGLOBIN 29.2 pg (27.0-33.0); MEAN CORPUSCULAR HGB CONC 32.7 g/dl (32.0-36.5); MEAN CORPUSCULAR VOLUME 89.5 fl (80.0-96.0); MONO # 0.6 10^3/uL (0.0-0.8); MONO % 8.8 % (2.0-8.0); NEUTROPHILS # 4.1 10^3/uL (1.5-8.5); NEUTROPHILS % 57.7 % (36.0-66.0); PLATELET COUNT, AUTOMATED 256 10^3/uL (150-450); RED BLOOD COUNT 5.51 10^6/uL (4.30-6.10); WHITE BLOOD COUNT 7.1 10^3/uL (4.0-10.0)
[2024-09-19 12:59] LABS: CREATININE, URINE 42.4 MG/DL; MALB URINE SIEMENS < 3.0 MG/L
[2024-09-19 13:11] LABS: HEMOGLOBIN A1c 5.9 % (4.0-6.0)
[2024-09-19 13:17] LABS: FREE T4 1.34 NG/DL (0.89-1.76); THYROID STIMULATING HORMONE 0.922 uIU/ML (0.55-4.78)
[2024-09-19 13:24] LABS: ALBUMIN 4.1 G/DL (3.2-5.2); ALKALINE PHOSPHATASE 163 U/L (40-129); ALT/SGPT 20 U/L (7.0-40); AST/SGOT 10 U/L (<34); BILIRUBIN,TOTAL 0.8 MG/DL (0.3-1.2); BLOOD UREA NITROGEN 10 MG/DL (9-23); CALCIUM LEVEL 9.4 MG/DL (8.3-10.6); CARBON DIOXIDE LEVEL 30 MMOL/L (20-31); CHLORIDE LEVEL 103 MMOL/L (98-107); CHOLESTEROL LEVEL 111 MG/DL (<200); CHOLESTEROL RISK RATIO 3.82 (<5); GLOMERULAR FILTRATION RATE > 90.0 (>42); GLUCOSE, FASTING 122 MG/DL (74-106); LDL CHOLESTEROL 38.4 MG/DL (<100); POTASSIUM SERUM 4.7 MMOL/L (3.5-5.1); SODIUM LEVEL 142 MMOL/L (136-145); TOTAL PROTEIN 7.2 G/DL (5.7-8.2); TRIGLYCERIDES LEVEL 218 MG/DL (<150)
[2024-09-21 12:32] LABS: PSA FREE 0.1 ng/mL; PSA TOTAL 0.4 ng/mL (< OR = 4.0)
== END ==
LOC: M SFHCCLAY 06:59
PROVIDERS: ATTEND Nurse Practitioner Family
DX: E11.9 Type 2 diabetes mellitus without complications (principal); I63.9 Cerebral infarction, unspecified; I10 Essential (primary) hypertension; N52.9 Male erectile dysfunction, unspecified; E78.2 Mixed hyperlipidemia; I35.8 Other nonrheumatic aortic valve disorders

== ENCOUNTER → 2025-01-12 | Outpatient (CLI) | payer MEDICARE, BC | LOC: M CLY 09:25 | PROVIDERS: ATTEND Nurse Practitioner Family | DX: M25.551 Pain in right hip (principal); M16.11 Unilateral primary osteoarthritis, right hip ==

== ENCOUNTER → 2025-03-22 | Outpatient (REF) | payer MEDICARE, BC ==
[2025-03-22 12:33] LABS: BASO # 0.1 10^3/uL (0.0-0.2); BASO % 0.7 % (0.0-1.0); EOS # 0.2 10^3/uL (0.0-0.5); EOS % 2.7 % (0.0-3.0); LYMPH # 2.1 10^3/uL (1.5-5.0); LYMPH % 24.4 % (24.0-44.0); MONO # 0.7 10^3/uL (0.0-0.8); MONO % 7.7 % (2.0-8.0); NEUTROPHILS # 5.4 10^3/uL (1.5-8.5); NEUTROPHILS % 64.3 % (36.0-66.0); PLATELET COUNT, AUTOMATED 230 10^3/uL (150-450)
[2025-03-22 12:39] LABS: ALT/SGPT 26 U/L (7.0-40); AST/SGOT 16 U/L (<34); CALCIUM LEVEL 9.0 MG/DL (8.3-10.6); CARBON DIOXIDE LEVEL 30 MMOL/L (20-31); CHLORIDE LEVEL 99 MMOL/L (98-107); CHOLESTEROL LEVEL 117 MG/DL (<200); CHOLESTEROL RISK RATIO 4.16 (<5); CREATININE FOR GFR 0.75 MG/DL (0.70-1.30); GLOMERULAR FILTRATION RATE > 90.0 (>42); LDL CHOLESTEROL 35.1 MG/DL (<100); NON-HDL-C 88.9 MG/DL; POTASSIUM SERUM 4.4 MMOL/L (3.5-5.1); SODIUM LEVEL 138 MMOL/L (136-145); TRIGLYCERIDES LEVEL 269 MG/DL (<150)
[2025-03-22 12:43] LABS: FREE T4 1.36 NG/DL (0.89-1.76)
[2025-03-22 13:15] LABS: CREATININE, URINE 33.6 MG/DL; MALB URINE SIEMENS < 3.0 MG/L
[2025-03-22 13:29] LABS: ESTIMATED AVERAGE GLUCOSE 137.0 MG/DL (60-110)
== END ==
LOC: M SFHCCLAY 07:42
PROVIDERS: ATTEND Nurse Practitioner Family
DX: E11.9 Type 2 diabetes mellitus without complications (principal); I63.9 Cerebral infarction, unspecified; I10 Essential (primary) hypertension; E78.2 Mixed hyperlipidemia; I35.8 Other nonrheumatic aortic valve disorders